=== PATIENT | male | born 1995 | race Caucasian/White ===

== ENCOUNTER 2023-04-20 14:01 | Emergency (ER) | payer OTHER ==
[~2023-04-20] VITALS: Ht 177.8 cm; Wt 113.0 kg
[2023-04-20 14:10] VITALS: BP 148/98; PULSE 118; RESP 16; O2SAT 97
[2023-04-20] MEDS ORDERED: TETANUS, DIPHTHERIA, PERTUSSIS VAC/PF 0.5ML (>10YR OLD) IM ONE (15:00)
[2023-04-20] MEDS ORDERED: ACETAMINOPHEN 325MG TABLET PO ONE (15:00)
[2023-04-20 15:30] LABS: BASOPHILS % 0.4 % (0.0-2.0); HEMOGLOBIN. 15.5 g/dL (14.0-18.0); LYMPHOCYTES % 12.7 % (20.0-50.0); MEAN CORPUSCULAR HEMOGLOBIN 29.9 pg (28.0-32.0); MEAN CORPUSCULAR HGB CONC 34.3 g/dL (31.0-37.0); MEAN CORPUSCULAR VOLUME 87.1 fL (80.0-94.0); MEAN PLATELET VOLUME 6.7 fl (7.4-10.4); MONOCYTES % 5.7 % (2.0-8.0); NEUTROPHILS % 80.2 % (40.0-76.0); PLATELET 379 x1000/uL (130-400); RED BLOOD CELL COUNT 5.17 mill/uL (4.7-6.1); RED CELL DISTRIBUTION WIDTH 13.3 % (11.6-14.6); WHITE BLOOD COUNT 18.1 x1000/uL (4.5-11.0)
[2023-04-20 15:41] LABS: CHLORIDE 109 mEq/L (98-107); INDEX HEMOLYSI 1 (1-3); INDEX ICTERIC 1 (1-4); INDEX LIPEMIC 1 (1-3); POTASSIUM 3.5 mEq/L (3.5-5.1); SODIUM 140 mEq/L (136-145)
[2023-04-20 15:48] LABS: ALANINE AMINOTRANSFERASE 30 IU/L (13-61); ALBUMIN 4.2 g/dL (3.4-5.0); ASPARTATE AMINOTRANSFERASE 18 IU/L (15-37); BILIRUBIN TOTAL 0.4 mg/dL (0.1-1.0); CARBON DIOXIDE 23 mEq/L (21-32); CREATININE 0.9 mg/dL (0.6-1.3); GLUCOSE 121 mg/dL (70-105); PROTEIN TOTAL 8.1 g/dL (6.0-8.3); UREA NITROGEN BLOOD 15 mg/dL (7-21)
[2023-04-20 15:50] VITALS: TEMP 98.1
[2023-04-20] MEDS ORDERED: IOHEXOL-300 100 ML BOTTLE ONE (16:51)
== END 2023-04-20 18:08 ==
LOC: ER 14:01
DX: S00.81XA Abrasion of other part of head, initial encounter (principal); S60.812A Abrasion of left wrist, initial encounter; S60.811A Abrasion of right wrist, initial encounter; S20.311A Abrasion of right front wall of thorax, initial encounter; S30.810A Abrasion of lower back and pelvis, initial encounter; F41.9 Anxiety disorder, unspecified; J45.909 Unspecified asthma, uncomplicated; V89.2XXA Person injured in unspecified motor-vehicle accident, traffic, initial encounter; Y93.89 Activity, other specified; Y92.89 Other specified places as the place of occurrence of the external cause; Y99.8 Other external cause status
CPT/HCPCS: 99285; 70450; 80053; 85025; 36415; 71260; 72125; 74177; 90715; 90471; Q9967